=== PATIENT | male | born 1955 | race Caucasian/White ===

== ENCOUNTER 2018-11-13 15:33 | Outpatient (CLI) | payer MEDICAID, SELFPAY ==
[2018-11-17 09:59] LABS: PSA, Screening 0.4 ng/ml (0-4.5)
== END 2018-11-13 15:53 ==
PROVIDERS: PCP Family Medicine; Visit Provider Nurse Practitioner Gerontology
DX: Z12.5 Encounter for screening for malignant neoplasm of prostate (principal); Z80.42 Family history of malignant neoplasm of prostate
CPT/HCPCS: 36415; 84153

== ENCOUNTER 2018-11-24 10:46 | Day surgery (SDC) | payer MEDICAID, SELFPAY ==
[2018-11-24 12:00] VITALS: BP 120/72; PULSE 87; RESP 18; TEMP 36.5; O2SAT 96
[2018-11-24] MEDS: Lactated Ringers 1,000 ML 80 ML IV (12:22)
[2018-11-24] MEDS: Lidocaine 2% Jelly 6 ML SYR (13:46)
--- NOTE | 2018-11-24 13:56 | W.PM.DSUDISC ---
Discharge Plan Disposition Patient Disposition: HOME Condition: Stable Discharge Details Reason For Visit: hematuria Attending Provider: Jonas Tavera Primary Care Provider: Ciera Vicente Home Meds and New Rx's Prescriptions: No Action clonidine HCl 0.1 mg tablet 0.1 mg PO TID RF: 0 albuterol sulfate 2.5 mg /3 mL (0.083 %) solution for nebulization 1.25 mg IH QID PRNRF: 0 omeprazole 40 mg capsule,delayed release(DR/EC) 40 mg PO DAILY RF: 0 tamsulosin 0.4 mg capsule 0.4 mg PO DAILY RF: 0 lorazepam 2 mg tablet 2 mg PO QD-BID PRNRF: 0 finasteride 5 mg tablet 5 mg PO DAILY RF: 0 nicotine (polacrilex) [Nicorette] 4 mg lozenge 4 mg MM ONCE RF: 0 bupropion HCl 300 mg tablet extended release 24 hr 300 mg PO QAM RF: 0 sildenafil (antihypertensive) 20 mg tablet 20 mg PO PRN RF: 0 chlorhexidine gluconate 0.12 % mouthwash 15 ml MM BID RF: 0 Discharge Instructions Additional Instructions: F/U 2 to 4 weeks to discuss voiding symptoms/urodynamics Pt does not need to void prior to discharge (he performs self cath already) Activity:: Activity as Tolerated Diet:: As Tolerated Discharge Orders Discharge Orders: Discharge Order (Routine); Ordered 11/24/18 Ordered By: Jonas Tavera DS: Diagnosis Discharge Diagnosis (1) Gross hematuria: Status: Acute
[2018-11-24 14:25] VITALS: BP 123/69; PULSE 75; RESP 18; TEMP 35.9; O2SAT 94
[2018-11-24] MEDS: Phenazopyridine 200 MG TAB PO (14:44)
--- NOTE | 2018-11-24 15:29 | ROE_ITS ---
DATE OF OPERATION: November 24, 2018 PREOPERATIVE DIAGNOSIS: Hematuria. POSTOPERATIVE DIAGNOSIS: Hematuria. PROCEDURE: Cystoscopy. SURGEON: Jonas Tavera M.D. ANESTHESIA: General. COMPLICATIONS: None. ESTIMATED BLOOD LOSS: Minimal. HISTORY: This is a 63-year-old gentleman who was initially seen with gross hematuria. He has a hist ory of incomplete bladder emptying with decreased bladder sensation. He is performing intermittent c atheterization. He has had a CT urogram that showed no upper tract disease. He presents now for cystoscopy to evalua te his lower urinary tract. OPERATIVE REPORT: The patient was brought to the Operating Room on 11/24/18. After successful induct ion of general anesthesia, he was placed in the dorsal lithotomy position. His genitalia was prepped and draped. A 22 Marshallese rigid cystoscope was passed through the urethra into the bladder. The urethra and bladde r were inspected with the 30- and 70-degree lenses. The pendulous urethra showed a few narrowings consistent with stricture disease. We were able to neg otiate the scope through these areas quite easily. The prostatic urethra appeared normal. The bladder neck was entered and the bladder mucosa was inspe cted. The bladder mucosa was hyperemic diffusely but no specific papillary or nodular lesions were seen. N o ulcers were seen. These findings were confirmed on reinspection of the bladder with the 70-degree lens. Both ureteral orifices appeared normal. No blood was seen coming from either side. Based on today's examination, there is no significant cause of his gross hematuria. We will further workup his incomplete bladder emptying and make recommendations at a later date. cc: Juancarlos Vicente M.D.
== END 2018-11-24 14:54 | disposition home or self-care (01) ==
PROVIDERS: PCP Family Medicine; Visit Provider Urology
PROC: 0TBB8ZZ Excision of Bladder, Via Natural or Artificial Opening Endoscopic (ICD-10-PCS; CPT 52000; principal; 2018-11-24 13:00)
DX: R31.0 Gross hematuria (principal); R33.8 Other retention of urine; N35.914 Unspecified anterior urethral stricture, male; N32.89 Other specified disorders of bladder
CPT/HCPCS: 52000; J0690

== ENCOUNTER 2021-09-06 11:08 | Outpatient (REF) | payer MEDICAID, SELFPAY | END 2021-09-06 11:09 | disposition home or self-care (01) | LOC: LBN 11:08 | PROVIDERS: PCP Family Medicine; Visit Provider Student in an Organized Health Care Education/Training Program | DX: J44.1 Chronic obstructive pulmonary disease with (acute) exacerbation (principal) | CPT/HCPCS: 87070; 87205 ==

== ENCOUNTER 2023-03-15 10:38 | Outpatient (REF) | payer MEDICARE, MEDICAID, SELFPAY ==
--- NOTE | 2023-03-15 09:50 | SKI_PTH ---
PATIENT: Matthias Ruiz LOC: [facility] U#:[id number] AGE/SX: 67/M ROOM: RE03/15/[address]: MURTAZA Collier : 1955 BED: DIS: 03/15/2023 SPEC #: [id number] RECD: 03/15/23 14:10 STATUS: MORENA REMaxwell #: [id number] JOEL: 03/15/23 09:[address]: Rasheed Panchal DEPT: Surgical Specimen RECD BY: Yesica Sepulveda ENTERED: 03/15/23 14:10 SP TYPE: OLMAN MARTÍNEZ DR: SOHAM MITCHELL Tissues: 1 - SKIN BIOPSY(SHAVE/PUNCH) Procedures: SKIN LEVEL 4 Comments: [id number]
== END 2023-03-15 10:39 | disposition home or self-care (01) ==
LOC: LBN 10:38
PROVIDERS: PCP Family Medicine; Visit Provider Physician Assistant
DX: R21 Rash and other nonspecific skin eruption (principal)
CPT/HCPCS: 88305

== ENCOUNTER → 2023-08-01 13:15 | Outpatient (BNVA) | payer MEDICARE, MEDICAID, SELFPAY | PROVIDERS: PCP Family Medicine; Referring Provider Family Medicine; Visit Provider Physician Assistant Surgical | DX: J44.9 Chronic obstructive pulmonary disease, unspecified (principal); Z79.51 Long term (current) use of inhaled steroids; R91.1 Solitary pulmonary nodule; F17.210 Nicotine dependence, cigarettes, uncomplicated; R14.0 Abdominal distension (gaseous); K21.9 Gastro-esophageal reflux disease without esophagitis | CPT/HCPCS: 36415; 94640; 99214; J7620 ==

== ENCOUNTER → 2023-08-15 10:00 | Outpatient (BNVA) | payer MEDICARE, MEDICAID, SELFPAY | PROVIDERS: PCP Family Medicine; Referring Provider Family Medicine; Visit Provider Physician Assistant Surgical | DX: J43.2 Centrilobular emphysema (principal); Z79.899 Other long term (current) drug therapy; R91.1 Solitary pulmonary nodule; K21.9 Gastro-esophageal reflux disease without esophagitis; Z14.8 Genetic carrier of other disease; F17.210 Nicotine dependence, cigarettes, uncomplicated | CPT/HCPCS: 99443 ==

== ENCOUNTER → 2023-11-14 10:32 | Outpatient (BNVA) | payer MEDICARE, MEDICAID, SELFPAY | PROVIDERS: PCP Family Medicine; Referring Provider Family Medicine; Visit Provider Student in an Organized Health Care Education/Training Program | DX: J43.2 Centrilobular emphysema (principal); R91.1 Solitary pulmonary nodule; F17.210 Nicotine dependence, cigarettes, uncomplicated; Z14.8 Genetic carrier of other disease | CPT/HCPCS: 99214 ==

== ENCOUNTER → 2024-06-18 08:51 | Outpatient (BNVA) | payer MEDICARE, SELFPAY | PROVIDERS: PCP Family Medicine; Referring Provider Family Medicine; Visit Provider Physician Assistant Surgical | DX: J43.2 Centrilobular emphysema (principal); R91.1 Solitary pulmonary nodule; F17.210 Nicotine dependence, cigarettes, uncomplicated; Z14.8 Genetic carrier of other disease | CPT/HCPCS: 99214 ==

== ENCOUNTER → 2025-08-11 10:55 | Outpatient (BNVA) | payer MEDICARE, SELFPAY | PROVIDERS: PCP Family Medicine; Referring Provider Family Medicine; Visit Provider Internal Medicine Pulmonary Disease | DX: J43.2 Centrilobular emphysema (principal); R91.1 Solitary pulmonary nodule; T17.908A Unspecified foreign body in respiratory tract, part unspecified causing other injury, initial encounter; R91.8 Other nonspecific abnormal finding of lung field; F17.210 Nicotine dependence, cigarettes, uncomplicated | CPT/HCPCS: 99215; 99406 ==